=== PATIENT | female | born 1995 | race Caucasian/White ===

== ENCOUNTER 2019-06-06 09:03 | Emergency (ER) | payer MEDICAID, SELFPAY ==
[2019-06-06 09:04] VITALS: BP 132/86; PULSE 114; RESP 16; TEMP 36.8; O2SAT 96; BMI 34.6
[2019-06-06 09:08] VITALS: BP 132/86; PULSE 112; RESP 16; TEMP 36.8; O2SAT 97
[2019-06-06 09:13] VITALS: O2SAT 97
[2019-06-06 09:16] VITALS: TEMP 36.8
[2019-06-06] MEDS: MethylPREDNISolone 125 MG/2 ML Vial 80 MG IV (09:22)
[2019-06-06] MEDS: 0.9% Normal Saline 1,000 ML 1000 ML IV (09:22)
[2019-06-06 10:43] VITALS: BP 124/66; PULSE 72; RESP 15; TEMP 36.7; O2SAT 98
--- NOTE | 2019-06-06 10:54 | ED.VIS.GEN ---
History of Present Illness Chief Complaint: Cough Narrative: 24-year-old female with a history of vocal cord dysfunction presents with a flareup. This feels similar to her usual flareup although not as severe. She has been intubated in the past but does not feel like this episode is as bad as usual. She is in her third trimester of . She has no abdominal pain, bleeding, or loss of fluids. She denies any recent infection. She has no throat pain, just vocal cord spasms. Severity is mild. Onset was gradual starting this morning. Past Medical History - Allergies and Home Meds Allergies/Adverse Reactions: Allergies acetaminophen Allergy (Unknown, Verified 08/12/15 07:38) Unknown PT DENIES ALLERGY azithromycin Allergy (Verified 09/06/15 22:42) Hives Penicillins Allergy (Verified 06/01/14 21:11) Anaphylaxis Primary Care Physician: Care Physician,No Primary [Primary Care Provider] - Surgical History: appendectomy, - - Patient reports she has been admitted to the ICU for asthma. Smoking Status: Former smoker - Family History Maternal Family History: Reports: No pertinent history Paternal Family History: Reports: No pertinent history Review of Systems General: Denies: Chills, Fever, Sweats Eyes: Denies: Visual changes - bilaterally, Diplopia ENT: Reports: - - vocal cord spasms. Denies: Rhinorrhea, Sore throat Cardiovascular: Denies: Chest pain, Palpitations Respiratory: Denies: Dyspnea, Cough, Dyspnea on exertion Gastrointestinal: Denies: Abdominal pain, Nausea, Vomiting, Diarrhea, Melena, Hematochezia Genitourinary: Denies: Dysuria, Hematuria, Frequency Musculoskeletal: Denies: Back pain, Extremity Pain Skin: Denies: Rash, Wounds Neurological: Denies: Headache, Weakness, Numbness Physical Exam Vital Signs/Narrative: Vital Signs Temp Pulse Resp BP Pulse Ox 06/06/19 10:43 98.1 F 72 15 124/66 H 98 06/06/19 09:16 98.2 F 06/06/19 09:08 98.2 F 112 H 16 132/86 H 97 06/06/19 09:04 98.2 F 114 H 16 132/86 H 96 General: Well nourished, Well developed, No Acute Distress Head: Normocephalic, Atraumatic Eyes: Perrl, EOMI ENT: Moist mucous membranes, No rhinorrhea Neck: Supple, Nontender Cardiovascular: Regular rate, Regular rhythm, No murmurs Respiratory: No distress, CTA bilaterally, Chest nontender Abdomen: Soft, Nontender, Nondistended, Normal bowel sounds Back: Nontender, Normal Inspection Extremities: Nontender, No edema Skin: Normal color, No rash Neurological: Alert, Oriented x3, Cranial nerves II-XII grossly intact, Normal Strength, Normal Sensation Psychological: Normal affect, Normal Mood Diagnostic/Tx/Re-eval - Medical Decision Making She was given IV solumedrol observed. Symptoms completely resolved. And observed. Symptoms completely resolved. She has no symptoms at all on reexamination. No stridor. Drinking water without trouble. She was given IV fluids. heart tones are normal. No abdominal pain, loss of fluids, or vaginal bleeding. She is still sensing movement. She feels back to baseline and wants to go home. She will follow closely with her SECURITY ASSURANCE ANALYST and return here if worse. ED Disposition - Plan for ED Patient: Disposition: Home or Assisted Living Diagnosis: Vocal cord dysfunction Instructions: Vocal Cord Dysfunction (VCD) Referrals: Care Physician,No Primary [Primary Care Provider] -
[2019-06-06 11:24] VITALS: BP 118/65; PULSE 70; RESP 16; O2SAT 98
== END 2019-06-06 11:25 | disposition home or self-care (01) ==
PROVIDERS: Emergency Provider Emergency Medicine
DX: J38.3 Other diseases of vocal cords (principal); J45.909 Unspecified asthma, uncomplicated; Z87.891 Personal history of nicotine dependence; Z88.0 Allergy status to penicillin
CPT/HCPCS: 99285; J7030; A4216

== ENCOUNTER 2019-07-16 00:02 | Outpatient (CLI) | payer MEDICAID, SELFPAY ==
[2019-07-16 00:20] VITALS: BMI 35.2
--- NOTE | 2019-07-25 09:06 | OB.TRI.NOTE ---
History of Present Illness Date of Service: 07/16/19 Was patient seen by the physician?: No Reason For Visit: FALL Date of Service: 07/16/19 Gestational age: 29w 5d Allergies azithromycin Allergy (Verified 07/18/19 23:24) Hives Penicillins Allergy (Verified 07/18/19 23:24) Anaphylaxis NST - FHR Rate Baby A Baseline: 145 Variability:: Moderate Accelerations:: 10 x 10 Decelerations:: None NST Reactive:: Appropriate for gestational age FHR Category:: Category I Uterine Activity:: irritability Impression/Plan 30 YOF high risk multigravida threatened labor no evidence of PTL, d/c home w/ routine f/u
== END 2019-07-16 01:05 | disposition home or self-care (01) ==
LOC: WPOUT 00:14 → WP 00:15
PROVIDERS: Visit Provider Obstetrics & Gynecology
DX: Z04.3 Encounter for examination and observation following other accident (principal); O60.03 Preterm labor without delivery, third trimester; Z3A.29 29 weeks gestation of pregnancy; Z88.0 Allergy status to penicillin
CPT/HCPCS: 59025; 59050; 99218; G0378

== ENCOUNTER 2019-07-18 23:00 | Outpatient (CLI) | payer MEDICAID, SELFPAY ==
[2019-07-18 23:23] VITALS: BMI 35.0
[2019-07-19 00:05] LABS: ROM Internal Control Test YES-OK TO RESULT pt. (Internal QC); ROM Patient Test Negative (Negative)
[2019-07-19 00:47] LABS: Mucous, Urine 0 SEEN /hpf (<or=2+); Red Blood Cells-Urine 0 SEEN /hpf (0-5)
[2019-07-19 00:49] LABS: Color, Urine Yellow (Yellow); Glucose, Dipstick Normal (Normal); Ketone-Dipstick Negative (Negative); Leukocyte Esterase-Dipstick 500 /ul (Negative); Nitrite-Dipstick Negative (Negative); Occult Blood-Urine Negative /ul (Negative); Protein-Dipstick Negative (Negative); Specific Gravity, Urine 1.015 (1.002-1.030); Urine Bilirubin Dipstick Negative (Negative); Urine Clarity Sl. Cloudy (Clear); Urine Urobilinogen Normal (Normal)
[2019-07-19 01:00] LABS: Bacteria 1+ /hpf (None Seen); Squamous Epithelial Cells - UA 5-10 SEEN /hpf (5-10); White Blood Cells 10-25 SEEN /hpf (0-5)
[2019-07-19 01:03] LABS: Amphetamine Urine VISTA NEGATIVE (<1000 ng/mL); Barbiturate Urine VISTA NEGATIVE (< 200 ng/mL); Benzodiazepine Urine VISTA NEGATIVE (< 200 ng/mL); Cocaine Urine VISTA NEGATIVE (< 300 ng/mL); Ecstacy Urine VISTA NEGATIVE (< 500 ng/mL); Methadone Urine VISTA NEGATIVE (< 300 ng/mL); PCP Urine VISTA NEGATIVE (< 25 ng/mL); THC Urine VISTA NEGATIVE (< 50 ng/mL); Vista UDS pH Range 8
[2019-07-19 02:30] VITALS: RESP 18
--- NOTE | 2019-07-19 15:24 | OB.TRI.HP_ITS ---
- Problem List (1) Vaginal discharge Status: Acute History of Present Illness Date of Service: 07/18/19 Was patient seen by the physician?: No Reason For Visit: R/O Date of Service: 07/18/19 Final SKINNY: 10/05/19 Gestational age: 28 Weeks and 6 Days Allergies azithromycin Allergy (Verified 07/18/19 23:24) Hives Penicillins Allergy (Verified 07/18/19 23:24) Anaphylaxis Laboratory Studies: Laboratory Tests 07/19/19 07/19/19 07/18/19 Range/Units 00:40 00:40 23:30 Urine Color Yellow (Yellow) Urine Clarity Sl. Cloudy (Clear) Urine pH 8.0 (5.0 - 8.0) Ur Specific [place] 1.015 (1.002-1.030) Urine Protein Negative (Negative) mg/dl Urine Glucose (UA) Normal (Normal) mg/dl Urine Ketones Negative (Negative) mg/dl Urine Occult Blood Negative (Negative) /ul Urine Nitrite Negative (Negative) Urine Bilirubin Negative (Negative) mg/dL Urine Urobilinogen Normal (Normal) mg/dl Ur Leukocyte Esterase 500 H (Negative) /ul Urine RBC 0 SEEN (0-5) /hpf Urine WBC 10-25 SEEN (0-5) /hpf Ur Squamous Epith Cells 5-10 SEEN (5-10) /hpf Urine Bacteria 1+ (None Seen) /hpf Urine Mucus 0 SEEN (<or=2+) /hpf Vag Amniotic Fld Detect Negative (Negative) Urine Opiates Screen NEGATIVE (< 300 ng/mL) Urine Methadone Screen NEGATIVE (< 300 ng/mL) Ur Barbiturates Screen NEGATIVE (< 200 ng/mL) Ur Phencyclidine Scrn NEGATIVE (< 25 ng/mL) Ur Amphetamines Screen NEGATIVE (<1000 ng/mL) U Methamphetamin-MDMA NEGATIVE (< 500 ng/mL) U Benzodiazepines Scrn NEGATIVE (< 200 ng/mL) Urine Cocaine Screen NEGATIVE (< 300 ng/mL) U Cannabinoids Screen NEGATIVE (< 50 ng/mL) Ur Drug Screen Comment Physical Exam Vitals: Vital Signs Resp 18 07/19/19 02:30 NST - FHR Rate Baby A Baseline: 140 Variability:: Moderate Accelerations:: 15 x 15 Decelerations:: None NST Reactive:: Yes Uterine Activity:: Irregular, few Impression/Plan A:Vaginal Discharge Irregular Uterine Contractions P: 1) ROM plus negative, no ROM 2) No signs of PTL 3) D/C home
== END 2019-07-19 02:30 | disposition home or self-care (01) ==
LOC: WPOUT 23:15 → WP 23:16
PROVIDERS: Obstetrics & Gynecology; Referring Provider Advanced Practice Midwife; Visit Provider Advanced Practice Midwife
DX: O26.893 Other specified pregnancy related conditions, third trimester (principal); N89.8 Other specified noninflammatory disorders of vagina; Z3A.28 28 weeks gestation of pregnancy
CPT/HCPCS: 59025; 59050; 80307; 81001; 84112; 87086; 87088; 99218; G0378

== ENCOUNTER 2019-08-13 03:40 | Outpatient (CLI) | payer MEDICAID, SELFPAY ==
[2019-08-13] MEDS: Lactated Ringers 1,000 ML 999 ML IV (04:20)
[2019-08-13 04:48] LABS: ROM Internal Control Test YES-OK TO RESULT pt. (Internal QC); ROM Patient Test Negative (Negative)
[2019-08-13 04:51] LABS: Fetal Fibronectin Negative
[2019-08-13 05:06] VITALS: BMI 36.8
[2019-08-13] MEDS: 0.9% Saline Lock 10 ML Syringe IV (05:27)
[2019-08-13 05:31] LABS: Bacteria 0 SEEN /hpf (None Seen); Color, Urine Yellow (Yellow); Glucose, Dipstick Normal (Normal); Ketone-Dipstick Negative (Negative); Leukocyte Esterase-Dipstick 500 /ul (Negative); Mucous, Urine 0 SEEN /hpf (<or=2+); Nitrite-Dipstick Negative (Negative); Occult Blood-Urine 25 /ul (Negative); Protein-Dipstick Negative (Negative); Red Blood Cells-Urine 0 SEEN /hpf (0-5); Urine Bilirubin Dipstick Negative (Negative); Urine Clarity Sl. Cloudy (Clear); Urine Urobilinogen Normal (Normal)
[2019-08-13 05:41] LABS: Group B Strep DNA By PCR Negative (Negative); Internal Control PASS; Probe Check PASS; Specimen Processing Control PASS
[2019-08-13 05:51] LABS: Squamous Epithelial Cells - UA 10-25 SEEN /hpf (5-10); White Blood Cells 5-10 SEEN /hpf (0-5)
--- NOTE | 2019-08-13 12:19 | OB.TRI.HP_ITS ---
History of Present Illness Date of Service: 08/13/19 Was patient seen by the physician?: No Reason For Visit: R/O LABOR Date of Service: 08/13/19 Final SKINNY: 10/05/19 Gestational age: 32 Weeks and 3 Days Allergies Penicillins Allergy (Verified 08/13/19 05:07) Anaphylaxis Laboratory Studies: Laboratory Tests 08/13/19 08/13/19 08/13/19 Range/Units 05:00 04:00 04:00 Urine Color Yellow (Yellow) Urine Clarity Sl. Cloudy (Clear) Urine pH 7.0 (5.0 - 8.0) Ur Specific [place] 1.010 (1.002-1.030) Urine Protein Negative (Negative) mg/dl Urine Glucose (UA) Normal (Normal) mg/dl Urine Ketones Negative (Negative) mg/dl Urine Occult Blood 25 H (Negative) /ul Urine Nitrite Negative (Negative) Urine Bilirubin Negative (Negative) mg/dL Urine Urobilinogen Normal (Normal) mg/dl Ur Leukocyte Esterase 500 H (Negative) /ul Urine RBC 0 SEEN (0-5) /hpf Urine WBC 5-10 SEEN (0-5) /hpf Ur Squamous Epith Cells 10-25 SEEN (5-10) /hpf Urine Bacteria 0 SEEN (None Seen) /hpf Urine Mucus 0 SEEN (<or=2+) /hpf Vag Amniotic Fld Detect Negative (Negative) Group B Strep DNA Negative (Negative) Fibronectin Specimen Comment Not Reportable 08/13/19 Range/Units 04:00 Urine Color (Yellow) Urine Clarity (Clear) Urine pH (5.0 - 8.0) Ur Specific [place] (1.002-1.030) Urine Protein (Negative) mg/dl Urine Glucose (UA) (Normal) mg/dl Urine Ketones (Negative) mg/dl Urine Occult Blood (Negative) /ul Urine Nitrite (Negative) Urine Bilirubin (Negative) mg/dL Urine Urobilinogen (Normal) mg/dl Ur Leukocyte Esterase (Negative) /ul Urine RBC (0-5) /hpf Urine WBC (0-5) /hpf Ur Squamous Epith Cells (5-10) /hpf Urine Bacteria (None Seen) /hpf Urine Mucus (<or=2+) /hpf Vag Amniotic Fld Detect (Negative) Group B Strep DNA (Negative) Fibronectin Negative Specimen Comment NST - FHR Rate Baby A Baseline: 130-140 Variability:: Moderate Accelerations:: 10 x 10 Decelerations:: Variable NST Reactive:: Yes, Appropriate for gestational age FHR Category:: Category I - for > 20 min after small variable Uterine Activity:: iritability Impression/Plan 24-year-old high-risk multigravida at 32-3/7 weeks gestation with threatened labor. fibronectin, group B strep and ROM prolapse were all negative. Patient had some irregular contractions and irritability that resolved after IV fluid bolus. Patient was discharged home. Her internal cervical loss was closed. To follow-up as needed or as scheduled.
== END 2019-08-13 07:15 | disposition home or self-care (01) ==
LOC: WPOUT 04:03 → WP 04:04
PROVIDERS: Visit Provider Obstetrics & Gynecology
DX: O47.03 False labor before 37 completed weeks of gestation, third trimester (principal); O09.93 Supervision of high risk pregnancy, unspecified, third trimester; Z3A.32 32 weeks gestation of pregnancy
CPT/HCPCS: 96360; 59025; 59050; 81001; 82731; 84112; 87081; 87653; 99218; J7120; A4216; G0378

== ENCOUNTER 2019-09-12 16:00 | Outpatient (CLI) | payer MEDICAID, SELFPAY ==
[2019-09-12 16:33] VITALS: BMI 35.9
--- NOTE | 2019-09-14 11:18 | OB.TRI.PN ---
Progress Notes Date of Service: 09/12/19 Progress Note: 24 year old at 36w5d presented to labor and delivery with complaints of uterine contractions. No vaginal discharge or leakage of fluid. o: FHR 145, moderate variability, accels reactive Irregular contractions Cervix unchanged from initial exam A: False labor Uterine contractions P: 1) No cervical change, ok to discharge home 2) Labor instructions reviewed and when to call
== END 2019-09-12 18:55 | disposition home or self-care (01) ==
LOC: WPOUT 16:28 → WP 16:29
PROVIDERS: Referring Provider Advanced Practice Midwife; Visit Provider Advanced Practice Midwife
DX: O47.03 False labor before 37 completed weeks of gestation, third trimester (principal); Z3A.36 36 weeks gestation of pregnancy
CPT/HCPCS: 59025; 59050; 99218; G0378

== ENCOUNTER 2019-09-20 20:54 | Inpatient (IN) | payer MEDICAID, SELFPAY ==
[2019-09-20 20:04] VITALS: BMI 35.7
[2019-09-20] MEDS: Lactated Ringers 500 ML 999 ML IV (21:15)
[2019-09-20 21:30] LABS: Absolute Lymphocyte Count 2.55 X10^3/uL (0.83-4.51); Absolute Neutrophil Count 7.2 X10^3/uL (2.0-7.7); Basophil# 0.02 X10^3/uL; Basophil% 0.2 % (0-1); Eosinophil# 0.06 X10^3/uL; Eosinophils% 0.6 % (0-5); Hematocrit 34.3 % (37-47); Hemoglobin 10.8 g/dL (12.0-15.0); Lymphocyte # 2.55 X10^3/ul (4.0); Lymphocyte % 24.1 % (19-41); Mean Corp Hgb Conc 31.5 g/dL (32-36); Mean Corpuscular Hgb 26.5 pg (27.0-32.0); Mean Corpuscular Volume 84.1 fL (81-99); Mean Platelet Vol. 12.3 fl (6.2-12.0); Monocyte# 0.72 X10^3/uL; Monocyte% 6.8 % (0-10); NRBC Flagged by Analyzer 0 % (0-5); Neutrophil # 7.17 X10^3/uL (2.7-7.7); Neutrophil % 67.5 % (47-70); Platelet Count 230 K/mm3 (150-450); RBC Distribution Width CV 14.9 % (11.6-14.6); RBC Distribution Width SD 44.7 fl (35.1-43.9); Red Blood Count 4.08 M/mm3 (4.2-5.4); White Blood Count 10.6 K/mm3 (4.4-11.0)
[2019-09-20] MEDS: Lactated Ringers 1,000 ML 50 ML IV (21:47)
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
[2019-09-21] MEDS: Oxytocin 30 units/NS 500 ml 30 UNITS/500 ML IV.SOLN IV (00:13)
[2019-09-21] MEDS: fentaNYL-bupivacaine (epidural) 100 ML BAG EPIDURAL (01:18)
[2019-09-21] MEDS: Lactated Ringers 500 ML 999 ML IV (01:45)
[2019-09-21] MEDS: Mag Hydrox/Al Hydrox/Simeth 30 ML UDC PO (04:03)
[2019-09-21] MEDS: Ondansetron 4 MG/2 ML Vial IV (04:09)
[2019-09-21] MEDS: Oxytocin 30 units/NS 500 ml 30 UNITS/500 ML IV.SOLN 334 UNITS IV (04:55)
--- NOTE | 2019-09-21 05:05 | OP.PCM_ITS ---
Vaginal Delivery Maternal Presentation: Active Labor Amniotic Membrane Rupture Type: Artificial Amniotic Fluid Description: Clear Final SKINNY: 10/05/19 Final SKINNY Source: US <20 weeks Gestational age: 38 Weeks and 0 Days Date of Procedure: 09/21/19 Pre-Operative Diagnosis: labor, IUD insertion Post-Operative Diagnosis: same Surgery/ Procedure Performed: Spontaneous Vaginal Delivery Anesthesiologist: Yuri Monzon Type of Anesthesia: Epidural Description of Procedure: A vigorous male infant was delivered TATYANA over intact perineum. A loose nuchal cord ?1 was easily reduced. The remainder the infant was delivered with maternal pushing and gentle traction only in less than 15 seconds. The Pitocin infusion was initiated for active management of the third stage. The cord was clamped and cut after 1 minute. The was attended to by the waiting nursing staff. The placenta was delivered spontaneously and intact. The cervix and vagina were intact. The Mirena IUD was placed in a ring forcep and guided gently into the uterine f undus. The strings were trimmed. Patient tolerated the procedure well. Sponge and needle counts were correct. A vaginal sweep was completed by me. Presentation: TATYANA Placental Delivery Description: Spontaneous Placenta Disposition: [facility] Cord Vessel Description: 3 Vessels Nuchal Cord Compression: Without compression Cord Entanglement: Around neck x 1, loose Drain: Jensen to straight drain Estimated Blood Loss: 300 A gender: Male (1 minute): 8 (5 minute): 9 Episiotomy Description: None Laceration: None Medications given after delivery: IV Pitocin Complications: None
[2019-09-21] MEDS: Acetaminophen 325 MG Tablet PO (07:37)
[2019-09-21 07:46] VITALS: BP 125/79; PULSE 83; RESP 16; TEMP 36.8; O2SAT 98
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
[2019-09-21 11:29] VITALS: BP 136/89; PULSE 86; RESP 16; TEMP 36.5; O2SAT 97
[2019-09-21] MEDS: Acetaminophen 500 MG Tablet 1000 MG PO (14:51)
[2019-09-21 15:45] VITALS: BP 126/86; PULSE 92; RESP 16; TEMP 36.1
[2019-09-21] MEDS: Naproxen 250 MG Tablet 500 MG PO (18:33)
[2019-09-21 21:43] VITALS: BP 136/93; PULSE 72; RESP 18; TEMP 36.5
[2019-09-22 00:30] VITALS: BP 98/65; PULSE 74; RESP 16; TEMP 37.1
[2019-09-22] MEDS: Acetaminophen 500 MG Tablet 1000 MG PO ×2 (03:31→11:05)
[2019-09-22 05:12] VITALS: BP 114/73; PULSE 75; RESP 18; TEMP 36.3
[2019-09-22 08:40] VITALS: BP 110/73; PULSE 64; RESP 16; TEMP 36.6; O2SAT 100
--- NOTE | 2019-09-22 08:46 | PCM.PN.OB ---
Subjective: Doing well per patient and nursing staff. Ambulating and taking PO without difficulty. Voiding and passing flatus. without difficulty. Denies headache, chest pain, SOB, leg pain, or increased vaginal bleeding. Pain controlled. Planning D/C home today pending baby's bilirubin level. - Physical Exam Vitals/I&O's: Vital Signs Temp Pulse Resp BP Pulse Ox 97.9 F 64 16 110/73 100 09/22/19 08:40 09/22/19 08:40 09/22/19 08:40 09/22/19 08:40 09/22/19 08:40 Oxygen Delivery Method Room Air Weight: 195 lb 6.4 oz Body Mass Index (BMI) 35.7 Intake and Output for Last 24 Hours 09/20/19 09/21/19 09/22/19 23:59 23:59 23:59 Intake Total 500 / 610.83 2000.90 / 2000.90 Output Total 600 / 600 Balance 500 / 610.83 1401.90 / 1401.90 General: Alert, Oriented x3, Cooperative HEENT: Atraumatic, Normocephalic Neck: Trachea Midline Lungs: Clear to auscultation, Normal air movement, No rhonchi, No wheeze Cardiovascular: Regular rate, Regular Rhythm, No murmurs Abdomen: Bowel Sounds Present, Soft, Non Tender, Gravid Extremities: No edema - Carlin's negative bilaterally Psych/Mental Status: Normal Affect, Appropriate Current Medications Acetaminophen (Tylenol) 1,000 mg PO Q8H PRN PRN PRN Reason: Pain Score 1-3 Last Admin: 09/22/19 03:31 Dose: 1,000 mg Documented by: Bisacodyl (Dulcolax) 10 mg RECTAL UD PRN PRN Reason: If no BM Dibucaine (Dibucaine) 1 applic TOPICAL TID PRN PRN; Protocol PRN Reason: Discomfort Hydrocortisone (Hytone) 1 applic TOPICAL TID PRN PRN; Protocol PRN Reason: Discomfort Methylergonovine Maleate (Methergine) 0.2 mg IM X1 PRN PRN Reason: Excess bleeding/uterine atony Naproxen (Naprosyn) 500 mg PO Q8H PRN PRN PRN Reason: Pain Score 1-3/10 Last Admin: 09/21/19 18:33 Dose: 500 mg Documented by: Ondansetron HCl (Zofran) 4 mg IV Q4H PRN PRN PRN Reason: Nausea Prochlorperazine Edisylate (Compazine Iv) 10 mg IV Q6H PRN PRN PRN Reason: NAUSEA/VOMITING Senna/Docusate Sodium (Senokot-S, Karie-Colace) 1 - 2 tablet PO DAILY PRN PRN PRN Reason: Constipation Simethicone (Mylicon) 80 mg PO PCHS PRN PRN Reason: Indigestion/Stomach pain Sodium Chloride () 5 - 15 ml IV UD PRN PRN Reason: SALINE FLUSH Medical Necessity - Tobacco Use Smoking Status: Never smoker Assessment/Plan All Active Problems Vaginal discharge (Acute) Abdominal pain affecting , antepartum (Acute) Asthma (Acute) Vocal cord dysfunction (Acute) A:PPD #1 P: 1) Routine and instructions reviewed 2) Declines pain medication Rx, will get OTC 3) BP mildly elevated, return for BP check in 2-3 days 4) Return for 2 week and 6 week visit 5) Mirena placed immediate PP
--- NOTE | 2019-09-22 08:54 | DCINST_ITS ---
Discharge Diet: No Restrictions Discharge Activity: Return to Normal Activity, May not drive while taking narcotic pain medications., May Shower, May Take a Tub Bath May resume sexual activity in: 4-6 weeks Weight Bearing Status: Full weight bearing Additional Activity Instructions:: Nothing in the vagina for 4-6 weeks. You may return to work/school in 6 weeks. Call your doctor if your incision/area has: Continuous Slow Oozing, Sudden Increased Bleeding, Increased Pain/ Swelling, Increased Redness, Foul Smelling Discharge Call your doctor if you observe: Fever of 101 or Higher, Numbness or Tingling, Change in Color, Inability to urinate, Inability to have a bowel movement, Using more than one pad per hour, Shortness of breath, Chest pain, Increased palpitations (irregular heartbeat), Calf discomfort, Uncontrolled pain Instructions: After a Vaginal , Common Questions About Additional Instructions: If you experience any of the following, contact your healthcare provider. * Bleeding that soaks a pad every hour for 2 hours * Fever 100.4 or higher * Unrelieved incision or abdominal pain * Swelling, redness, discharge or bleeding from your incision or episiotomy site * Your incision begins to separate * Problems urinating (including inability to urinate or burning while urinating). * Visual changes * Severe headache * Flu-like symptoms * Pain or redness in one of both of your breasts * Pain, warmth, tenderness or swelling in your legs, especially the calf area * Frequent nausea and vomiting * Symptoms of depression or anxiety If you experience any of the following, call 911 or go to the nearest Emergency Room. * Chest pain * Problems breathing * Seizure activity * Partial or complete paralysis of a body part, slurred speech, weakness or drooping of the face, or a sudden inability to walk or hold your balance Allergies/Adverse Reactions: Allergies peanut Allergy (Verified 09/20/19 20:07) Hives Penicillins Allergy (Verified 09/20/19 20:07) Anaphylaxis Medications to take at Discharge Albuterol Inhaler [Ventolin Hfa] 2 puff INHALATION PRN PRN 03/18/14 Pnv No.103/Folic/Om3s/Fish Oil [ Gummies] 1 ea PO DAILY 07/16/19 Please Follow Up With: Ciera Teresa MD When: Call to make an appointment with your doctor in 2-3 days for a BP check with provider. Then follow up in 2 weeks and 6 weeks. Primary Care Physician: Care Physician,No Primary [Primary Care Provider] - Test Results: Test results from this visit will be discussed in further detail at your follow- up appointment, if applicable.
[2019-09-22] MEDS: Senna/Docusate Sodium 1 Tablet PO (13:25)
[2019-09-22] MEDS: Naproxen 250 MG Tablet 500 MG PO (13:25)
--- NOTE | 2019-09-22 13:36 | NURSING ---
This director community health nursing reviewed the documentation completed by Tamela Corbin, student nurse and it is complete.
== END 2019-09-22 17:25 | disposition home or self-care (01) | DRG 560 ==
LOC: WPOUT 20:56 → WP 20:56
PROVIDERS: Admitting Provider Obstetrics & Gynecology; Visit Provider Obstetrics & Gynecology
DX: O69.1XX0 Labor and delivery complicated by cord around neck, with compression, not applicable or unspecified (principal); O99.52 Diseases of the respiratory system complicating childbirth; J38.3 Other diseases of vocal cords; J45.909 Unspecified asthma, uncomplicated; Z91.410 Personal history of adult physical and sexual abuse; Z3A.37 37 weeks gestation of pregnancy; Z37.0 Single live birth; Z30.430 Encounter for insertion of intrauterine contraceptive device; Z3A.38 38 weeks gestation of pregnancy
CPT/HCPCS: 59025; 59050; 85025; 86850; 86900; 86901; 99218; J7120; G0378; J2405

== ENCOUNTER 2020-02-02 16:58 | Emergency (ER) | payer MEDICAID, SELFPAY ==
[2020-02-02 16:59] VITALS: BP 122/87; PULSE 86; RESP 18; TEMP 36.4; O2SAT 98; BMI 32.9
--- NOTE | 2020-02-02 17:11 | RAD_ITS ---
STUDY: X-RAY - RIGHT KNEE REASON FOR EXAM: Female, 24 years old. FELL OFF CURB, RIGHT KNEE PAIN, UNABLE TO BEAR WEIGHT TECHNIQUE: 4 view(s) of the knee. COMPARISON: None. FINDINGS: Normal visualized distal femur. Normal visualized proximal tibia and fibula. Normal proximal tibiofibular articulation. There is no demonstrated fracture. Normal medial femorotibial compartment. Normal lateral femorotibial compartment. Normal patellofemoral articulation. There is no demonstrated joint effusion. The soft tissue structures are unremarkable. RAD/Knee 4 or More Views IMPRESSION: Normal x-ray examination of the knee. Electronically Signed: Emanuel Kurtz MD at 18:02 EDT , Service support ,
--- NOTE | 2020-02-02 17:12 | ED.VIS.GEN ---
History of Present Illness Chief Complaint: Lower Extremity Injury Narrative: This patient is a 24-year-old female who presents after mechanical fall. She had just walked out of the chiropractor's office. She was looking at her phone and not paying attention where she was walking and stepped wrong off the curb. She fell to the ground. She complains of pain from the right knee down including the lower leg ankle and foot. She was able to initially partially weight-bear but this was very painful. She took ibuprofen and borrowed her 's crutches. She otherwise denies recent illness. No fevers cough chest pain trouble breathing. No other injuries from today's falls. No head injury no loss of consciousness no pain to the neck torso upper extremities or left lower extremity Past Medical History - Allergies and Home Meds Allergies/Adverse Reactions: Allergies peanut Allergy (Verified 02/02/20 17:01) Hives Penicillins Allergy (Verified 02/02/20 17:01) Anaphylaxis Primary Care Physician: Care Physician,No Primary [Primary Care Provider] - Past Medical History: - - Asthma Surgical History: appendectomy, - - Patient reports she has been admitted to the ICU for asthma. Smoking Status: Never smoker - Family History Maternal Family History: Reports: No pertinent history Paternal Family History: Reports: No pertinent history Review of Systems All systems negative except as indicated General: Denies: Fever Eyes: Denies: Visual changes - bilaterally ENT: Denies: Bilateral ear pain Cardiovascular: Denies: Chest pain Respiratory: Denies: Dyspnea Gastrointestinal: Denies: Abdominal pain Musculoskeletal: Reports: Extremity Pain Skin: Denies: Rash Neurological: Denies: Headache Hematologic: Denies: Easy bruising Allergy: Denies: Uticaria Physical Exam Vital Signs/Narrative: Vital Signs Temp Pulse Resp BP Pulse Ox 02/02/20 16:59 97.6 F L 86 18 122/87 H 98 Inital Vital Signs reviewed: Yes General: Well nourished Head: Normocephalic Eyes: EOMI ENT: Moist mucous membranes Neck: Supple Cardiovascular: Regular rate Respiratory: No distress Extremities: - - Patient has diffuse tenderness along the right lower extremity. She complains of pain on palpation at the knee lower leg ankle and foot she does not have focal bony tenderness she has an easily palpable dorsalis pedis pulse she has brisk capillary refill normal sensation to light touch she has normal motor function no bony deformity no appreciable knee effusion no abrasions lacerations or hematomas Skin: Normal color Neurological: Alert, - - GCS 15 Psychological: Normal affect Diagnostic/Tx/Re-eval Impressions Knee X-Ray 02/02/20 17:11 IMPRESSION: Normal x-ray examination of the knee. Electronically Signed: Emanuel Kurtz MD at 18:02 EDT , Service support , Ankle X-Ray 02/02/20 17:25 IMPRESSION: Normal x-ray examination of the ankle. Electronically Signed: Emanuel Kurtz MD at 17:59 EDT , Service support , Foot X-Ray 02/02/20 17:25 IMPRESSION: Normal x-ray examination of the foot. Electronically Signed: Emanuel Kurtz MD at 18:01 EDT , Service support , 02/02/20 17:11 Knee 4 or More Views [RAD] Stat 02/02/20 17:25 Ankle min 3 Views [RAD] Stat Foot min 3 Views [RAD] Stat - Medical Decision Making X-ray imaging negative as above. Patient was given an Jared wrap and crutches. I provided a prescription for naproxen. Patient advised on supportive care including ice and elevation. Patient discharged. ED Disposition - Plan for ED Patient: Disposition: Home or Assisted Living Diagnosis: Ankle sprain, Knee sprain, Foot sprain Instructions: ED Sprain Ankle, ED Sprain Knee Prescriptions: Naproxen [Naprosyn] 500 mg PO BID #20 tab Prescription Printed Referrals: Care Physician,No Primary [Primary Care Provider] -
--- NOTE | 2020-02-02 17:25 | RAD_ITS ---
STUDY: X-RAY - RIGHT ANKLE REASON FOR EXAM: Female, 24 years old. FELL OFF CURB, RIGHT ANKLE PAIN, UNABLE TO BEAR WEIGHT TECHNIQUE: 3 view(s) of the ankle. COMPARISON: None. FINDINGS: Normal visualized distal tibia and fibula. Normal medial and lateral malleoli. Normal tibiotalar articulation and ankle mortise. Normal visualized talus and calcaneus. The visualized subtalar, talonavicular, calcaneocuboid and tarsal articulations are normal. There is no demonstrated fracture. The soft tissue structures are unremarkable. RAD/Ankle min 3 Views IMPRESSION: Normal x-ray examination of the ankle. Electronically Signed: Emanuel Kurtz MD at 17:59 EDT , Service support ,
--- NOTE | 2020-02-02 17:25 | RAD_ITS ---
STUDY: X-RAY - RIGHT FOOT CLINICAL: Female, 24 years old. FELL OFF CURB, RIGHT FOOT PAIN, UNABLE TO BEAR WEIGHT TECHNIQUE: 3 view(s) of the foot. COMPARISON: None. FINDINGS: Normal talus, calcaneus, and tarsal bones. Normal visualized subtalar, talonavicular, calcaneocuboid, tarsal and tarsometatarsal articulations. Normal metatarsi. Normal joints. No visualized fracture. The soft tissue structures are unremarkable. RAD/Foot min 3 Views IMPRESSION: Normal x-ray examination of the foot. Electronically Signed: Emanuel Kurtz MD at 18:01 EDT , Service support ,
[2020-02-02 18:36] VITALS: RESP 18
== END 2020-02-02 18:48 | disposition home or self-care (01) ==
PROVIDERS: Emergency Provider Emergency Medicine
DX: S93.401A Sprain of unspecified ligament of right ankle, initial encounter (principal); S83.91XA Sprain of unspecified site of right knee, initial encounter; S93.601A Unspecified sprain of right foot, initial encounter; W10.1XXA Fall (on)(from) sidewalk curb, initial encounter; J45.909 Unspecified asthma, uncomplicated; Z79.899 Other long term (current) drug therapy
CPT/HCPCS: 73564; 73610; 73630; 99283